=== PATIENT | female | born 1965 | race Caucasian/White ===

== ENCOUNTER 2018-01-26 04:12 | Emergency (ER) | END 2018-01-26 06:17 | disposition home or self-care (01) ==

== ENCOUNTER 2018-06-21 09:36 | Emergency (ER) | payer BC ==
[~2018-06-21] VITALS: Ht 160 cm; Wt 91.6 kg
[~2018-06-21 09:36] MED LIST: IBUP-1542 PO
[2018-06-21 09:44] VITALS: Ht 160 cm; Wt 91.6 kg
[2018-06-21] MEDS ORDERED: IBUPROFEN 600 MG TAB PO ONE (10:00)
[2018-06-21] MEDS ORDERED: TRAM50TA2 PO (11:42)
[2018-06-21] MEDS ORDERED: IBUP-1542 PO (11:42)
--- NOTE | 2018-06-21 11:49 | ERD ---
ER Documentation Chief Complaint Chief Complaint C/O LEFT ARMPAN S/P FALL AND LANDED ON LEFT ARM; CMS INTACT, NO DEFORMITY HPI 52-year-old female tripped landing on her left upper extremity today. She is uncertain if it was outstretched hand or directly on her left elbow. Her pain is in the left elbow. No shoulder, wrist pain. She denies head injury, neck injury. ROS All systems reviewed and are negative except as per history of present illness. Medications Home Meds Active Scripts Tramadol HCl (Tramadol HCl) 50 Mg Tablet, 50 MG PO Q4 PRN for PAIN, #15 TAB Prov:HIEU AKERS MD 06/21/18 Ibuprofen* (Motrin*) 600 Mg Tab, 600 MG PO Q6, #20 TAB Prov:HIEU AKERS MD 06/21/18 Ibuprofen* (Motrin*) 600 Mg Tab, 600 MG PO Q6H PRN for PAIN AND/OR INFLAMMATION, #30 TAB Prov:DAVIDE MARTINS MD 01/26/18 Allergies Allergies: Coded Allergies: No Known Drug Allergies (Verified Allergy, Unknown, 06/21/18) PMhx/Soc History of Surgery: No Anesthesia Reaction: No Hx Neurological Disorder: No Hx Respiratory Disorders: No Hx Cardiac Disorders: Yes (Hypertension, diabetes) Hx Psychiatric Problems: No Hx Miscellaneous Medical Probl: Yes (Hypothyroidism) Hx Alcohol Use: No Hx Substance Use: No Hx Tobacco Use: No Smoking Status: Never smoker FmHx Family History: No diabetes, No coronary disease, No other Physical Exam Vitals Vital Signs Date Temp Pulse Resp B/P (MAP) Pulse Ox O2 O2 Flow FiO2 Time Delivery Rate 06/21/18 98.4 82 18 183/85 99 09:44 (117) Physical Exam Const: No acute distress Head: Atraumatic Eyes: Normal Conjunctiva ENT: Normal External Ears, Nose and Mouth. Neck: Full range of motion. No meningismus. Resp: Clear to auscultation bilaterally Cardio: Regular rate and rhythm, no murmurs Abd: Soft, non tender, non distended. Normal bowel sounds Skin: No petechiae or rashes Back: No midline or flank tenderness Ext: No cyanosis, or edema generalized tenderness and swelling around the left elbow joint. Pulses 2+. No wrist tenderness or deformities no clavicle or shoulder tenderness or deformities. Neur: Awake and alert Psych: Normal Mood and Affect Results 24 hrs Current Medications Medications Dose Sig/Chanel Start Time Status Last (Trade) Ordered Route PRN Stop Time Admin Dose Reason Admin Ibuprofen 600 mg ONCE ONCE 06/21/18 DC 06/21/18 (Motrin) PO 10:00 10:00 06/21/18 10:01 Procedures/MDM X-ray left Elbow 3V Interpreted by me: Fat Pads: . Anterior and posterior fat pads. Bones: No fracture Joints: No dislocation Foreign body: None. Impression-elevated fat pads suggestive of possible occult fracture. Presents with left elbow pain after falling tripping in the last day. She has elevated fat pad suggestive of possible occult fracture. She has no signs of ischemia, deficits, infection, syndrome. She is placed in a left posterior el bow splint was neurovascular intact after splint should. She was also given left arm sling. Patient will be discharged home with recommendations for primary care and orthopedic follow-up. She is advised to repeat x-ray in 10 to 14 days for persistent pain. She will be treated with ibuprofen and tramadol. Patient advised to return sooner for fevers, worsening pain, new worsening symptoms. Departure Diagnosis: Primary Impression: Injury of upper extremity Encounter type: initial encounter Laterality: left Qualified Codes: S49.92XA - Unspecified injury of left shoulder and upper arm, initial encounter Condition: Stable Patient Instructions: Contusion, Elbow, Elbow Fracture Referrals: DOCTOR,NOT ON STAFF (PCP) ADRIAN BLACKWOOD MD Additional Instructions: There is some swelling seen on x-ray which sometimes suggest fracture not seen on x-ray. Recommend repeat x-ray in 10 to 14 days. See primary doctor and possibly orthopedist for pain next week HIEU AKERS MD June 21, 2018 11:49
[2018-06-21 12:45] VITALS: BP 143/78; PULSE 77; RESP 18
== END 2018-06-21 12:44 | disposition home or self-care (01) ==
LOC: FTE 09:36
DX: S49.92XA Unspecified injury of left shoulder and upper arm, initial encounter (principal); I10 Essential (primary) hypertension; E11.9 Type 2 diabetes mellitus without complications; E03.9 Hypothyroidism, unspecified; W18.39XA Other fall on same level, initial encounter; Y92.9 Unspecified place or not applicable